=== PATIENT | male | born 1930 | race Two or more races ===

== ENCOUNTER 2017-06-04 20:21 | Emergency (ER) | payer OTHER ==
[~2017-06-04] VITALS: Ht 165.1 cm; Wt 59.0 kg
[2017-06-04 22:14] LABS: Basophils # (auto) 0.1 uL; Basophils % (auto) 0.6 % (0.0-2.0); Eosinophils # (auto) 0.1 uL; Eosinophils % (auto) 0.5 % (0.0-7.0); Hemoglobin 12.1 g/dL (13.5-17.5); Lymphocytes # (auto) 0.9 uL; Lymphocytes % (auto) 8.7 % (10.0-50.0); Mean Corpuscular Hgb Conc. 33.7 g/dL (32.0-36.0); Mean Platelet Volume 7.1 fL (6.9-10.8); Monocytes # (auto) 0.5 uL; Monocytes % (auto) 5.1 % (0.0-12.0); Neutrophils # (auto) 9.1 uL; Neutrophils % (auto) 85.1 % (37.0-80.0); Platelet Count (auto) 213 10^3/uL (140-450); Red Cell Distribution Width 13.5 % (11.8-14.3); White Blood Cell 10.6 10^3/uL (4.4-10.8)
[2017-06-04 22:26] LABS: Albumin 4.3 g/dL (3.4-5.0); BUN/Creatinine Ratio 20.4; Bilirubin, Total 0.3 mg/dL (0.2-1.0); Calcium 8.8 mg/dL (8.5-10.1); Potassium 4.5 mmol/L (3.5-5.1); Total Protein 8.1 g/dL (6.4-8.2)
[2017-06-04] MEDS ORDERED: SODIUM CHLORIDE 0.9% 1,000 ML IV ONE (22:30)
[2017-06-04] MEDS ORDERED: ONDANSETRON HCL 4 MG/2 ML VIAL IV ONE (22:45)
[2017-06-04] MEDS ORDERED: MORPHINE SULF INJ 2 MG/ML SYRINGE 1ML IV ONE (22:45)
[2017-06-04 22:51] LABS: INR 1.05 (0.9-1.15); Partial Thromboplastin Time 24.1 sec (22.64-33.71); Prothrombin Time 11.4 sec (9.37-12.3)
[2017-06-04 23:07] LABS: B-Type Natriuretic Peptide 34.39 pg/mL (0-100)
[2017-06-04 23:08] LABS: Temperature: 22.9 C (20.0-25.0)
[2017-06-05] MEDS ORDERED: MORPHINE SULF INJ 2 MG/ML SYRINGE 1ML IV ONE (02:15)
[2017-06-05 03:19] LABS: Urine Bilirubin Negative (Negative); Urine Blood 3+ /uL (Negative); Urine Glucose Normal (Normal); Urine Ketone Negative (Negative); Urine Nitrite Negative (Negative); Urine RBC 1256 /hpf (0 - 3); Urine Urobilinogen Normal (Negative); Urine pH 6.5 (5.0-8.0)
[2017-06-05 03:41] LABS: Urine Color Red (Yellow)
[2017-06-05] MEDS ORDERED: LACTULOSE 20Gm/30ML SOLN PO ONE (06:15)
[2017-06-05] MEDS ORDERED: hydrALAZINE HCL 20 MG/ML VL IV ONE (08:45)
[2017-06-05 09:30] VITALS: BP 144/82
== END 2017-06-05 10:56 | disposition home or self-care (01) ==
LOC: ER 20:27
DX: N13.732 Vesicoureteral-reflux with reflux nephropathy with hydroureter, bilateral (principal); N13.30 Unspecified hydronephrosis; K59.00 Constipation, unspecified
CPT/HCPCS: 36415; 51702; 71010; 74176; 80053; 81001; 82150; 83690; 83735; 83880; 84484; 85025; 85610; 85730; 93005; 96361; 96374; 96375; 96376; 99285; J0360; J2270; J2405; J7030

== ENCOUNTER 2017-06-19 00:18 | Emergency (ER) | payer OTHER ==
[~2017-06-19] VITALS: Ht 167.6 cm; Wt 57.2 kg
[2017-06-19] MEDS ORDERED: ONDANSETRON HCL 4 MG/2 ML VIAL IV ONE (06:30)
[2017-06-19] MEDS ORDERED: MORPHINE SULF INJ 2 MG/ML SYRINGE 1ML IV ONE (06:30)
[2017-06-19 07:31] VITALS: BP 144/67
== END 2017-06-19 07:58 | disposition home or self-care (01) ==
LOC: ER 00:22
DX: N39.0 Urinary tract infection, site not specified (principal); K59.00 Constipation, unspecified; I10 Essential (primary) hypertension
CPT/HCPCS: 74000; 96374; 96375; 99284; J2270; J2405